=== PATIENT | male | born 1955 | race Two or more races ===

== ENCOUNTER → 2020-02-24 | Outpatient (CLI) | payer BC ==
--- NOTE | 2020-03-01 12:01 | Diagnostic Imaging Report ---
EXAM: Thyroid Ultrasound INDICATION: ^NONTOXIC SINGLE THYROID NODULE COMPARISON: None TECHNIQUE: Transverse and sagittal images were obtained of the thyroid gland. FINDINGS: Thyroid gland: Size: Right lobe: 5.4 x 2.4 x 1.8 cm, Normal in size Left lobe: 3.9 x 6.6 x 3.6 cm, enlarged in size Isthmus: 0.5 cm, Normal in size Appearance: Heterogeneous echotexture without increased vascularity. Masses/Nodules: Right lobe: There are few subcentimeter cysts in the right thyroid lobe. 0.5 cm solid (2 pts) nodule in the interpolar region of the right thyroid lobe with smooth margin (0 pts), [id number] (0 pts), isoechoic (1 pt), and no calcifications (0 pts): TR3a (<1.5 cm): No follow-up. Left lobe: 6 x 3.4 x 4.2 cm solid (2 pts) nodule near completely replacing the left thyroid lobe with smooth margin (0 pts), [id number] (0 pts), isoechoic (1 pt), and no calcifications (0 pts): TR3c (>2.5 cm), Mildly Suspicious: FNA. Parathyroid: No focal parathyroid masses. IMPRESSION: Large heterogeneous nodule near completely replacing the left thyroid lobe measuring up to 6 cm. TR3c (>2.5 cm), Mildly Suspicious: FNA. TI-RADS Lexicon: TR1, Benign: No FNA TR2, Not Suspicious: No FNA. TR3a (<1.5 cm): No follow-up. TR3b (1.5-2.5 cm), Mildly Suspicious: Follow at 1, 3, 5 years. TR3c (>2.5 cm), Mildly Suspicious: FNA. TR4a (<1.0 cm): No follow-up. TR4b (1.0-1.5 cm), Moderately Suspicious: Follow at 1, 2, 3, 5 years. TR4c (>1.5 cm), Moderately Suspicious: FNA. TR5a (<0.5 cm): No follow-up. TR5b (0.5-1.0 cm), Highly Suspicious: Follow at 1, 2, 3, 4, 5 years. TR5c (>1.0 cm), Highly Suspicious: FNA. *Rebiopsy if new suspicious features *No recommendation at this time for significant interval growth. Nodule Characteristics: * Benign features: cystic, hyperechoic, comet-tail artifact, complete halo * Minor suspicious features: solid, hypoechoic, other calcifications * Major suspicious features: microcalcifications, marked hypoechoic (less than strap muscle), suspicious lymph nodes, taller than wide, lobulated or ill-defined margins. Literature: ACR Thyroid Imaging, Reporting and Data System (TI-RADS): White Paper of the ACR TI-RADS Committee. J Am Rox Radiol 2017. Signed by: Shane Mckeon MD on 02/25/2020 1:04 PM
== END ==
LOC: US 13:50
PROVIDERS: ATTEND Family Medicine
DX: E04.1 Nontoxic single thyroid nodule (principal)
CPT/HCPCS: 76536

== ENCOUNTER → 2021-02-09 | Outpatient (CLI) | payer BC ==
[~2021-02-09] MED LIST: DONEPEZIL HCL10 MG; FLOMAX0.4 MG PO; LANTUS 3ML100 UNITS/ SQ; LISINOPRIL10 MG PO; LYRICA100 MG PO; METHOCARBAMOL750 MG PO; OMEPRAZOLE40 MG PO; PLAVIX75 MG PO; SIMVASTATIN20 MG PO; TRULICITY4.5 MG/0.5 SQ
== END | disposition home or self-care (01) ==
LOC: RAD 13:42 → EDSTATUS 02-14 10:00
PROVIDERS: ATTEND Internal Medicine Gastroenterology
DX: Z01.810 Encounter for preprocedural cardiovascular examination (principal); Z01.812 Encounter for preprocedural laboratory examination; Z20.822 Contact with and (suspected) exposure to COVID-19; Z12.11 Encounter for screening for malignant neoplasm of colon; K21.9 Gastro-esophageal reflux disease without esophagitis
CPT/HCPCS: 93005; U0002

== ENCOUNTER → 2021-03-03 | Outpatient (CLI) | payer BC ==
[2021-03-03 16:12] LABS: BASOPHILS # (AUTO) 0.1 (0.0-0.1); BASOPHILS % 0.8 % (0.0-1.0); EOSINOPHILS # (AUTO) 0.1 (0.0-0.4); EOSINOPHILS % 1.6 % (0.0-6.0); HEMATOCRIT 46.7 % (38.2-49.6); HEMOGLOBIN 15.1 g/dL (14.0-18.0); LYMPHOCYTES # (AUTO) 2.1 (1.0-3.2); MEAN CORPUSCULAR HEMOGLOBIN 28.4 pg (28-32); MEAN CORPUSCULAR HGB CONC 32.3 g/dL (31-35); MEAN CORPUSCULAR VOLUME 87.8 fL (81-99); MONOCYTES # (AUTO) 0.5 (0.2-0.8); MONOCYTES % 7.7 % (4.4-11.3); NEUTROPHILS # (AUTO) 3.6 (2.1-6.9); NEUTROPHILS % 56.6 % (38.7-80.0); PLATELET COUNT 210 x10e3/uL (140-360); RED BLOOD COUNT 5.32 x10e6/uL (4.3-5.7); RED CELL DISTRIBUTION WIDTH 14.6 % (11.7-14.4)
== END | disposition home or self-care (01) ==
LOC: DX 13:50 → EDSTATUS 03-07 14:00
PROVIDERS: ATTEND Internal Medicine Gastroenterology
DX: Z01.812 Encounter for preprocedural laboratory examination (principal); Z12.11 Encounter for screening for malignant neoplasm of colon; K21.9 Gastro-esophageal reflux disease without esophagitis; I10 Essential (primary) hypertension; E78.5 Hyperlipidemia, unspecified; E11.9 Type 2 diabetes mellitus without complications; Z79.4 Long term (current) use of insulin; Z79.02 Long term (current) use of antithrombotics/antiplatelets; Z79.899 Other long term (current) drug therapy
CPT/HCPCS: 36415; 85025